=== PATIENT | male | born 1985 | race Caucasian/White ===

== ENCOUNTER 2018-08-17 01:07 | Emergency (ER) | payer OTHER ==
[2018-08-17 01:28] VITALS: PULSE 76; BMI 33.9
[2018-08-17 02:20] VITALS: BP 140/92; TEMP 97.8
[2018-08-17] MEDS ORDERED: ALBUTEROL SO4 2.5/IPRATROPIUM 0.5 INH SOL 3 ML VIAL.NEB. NEB ONE ×2 (02:26→02:31)
--- NOTE | 2018-08-17 02:55 | PDOC ---
History of Present Illness - General Chief Complaint: Shortness of Breath Stated Complaint: DIFFICULTY BREATHING Time Seen by Provider: 08/17/18 02:02 History Source: Patient Exam Limitations: No Limitations - History of Present Illness Initial Comments: 08/17/18 02:47 32-year-old male with history of mild asthma and possible anxiety presents with episode of chest pain and wheezing about 1.5 hours ago while at work. Patient had a stressful shift at work but no exertional stress, while at rest developed chest tightness, reported wheezing, and throat tightness. The episode gradually improved but continues now, presents for evaluation. Denies any history of exertional limitations, climb stairs and walks daily without chest pain or difficulty breathing. Has been treated for mild intermittent asthma in the past with nebulizers only, never admitted or intubated. He does not smoke or drink or do any drugs, including cocaine. Has no notable family history of early heart disease other than his grandfather, denies any recent travel or leg swelling or cramping. Slight anxiety but never had a panic attack, denies any acute psychiatric issues. Past History - Past Medical History Allergies/Adverse Reactions: Allergies Allergy/AdvReac Type Severity Reaction Status Date / Time No Known Allergies Allergy Verified 08/17/18 01:25 Home Medications: Ambulatory Orders NK [No Known Home Medication] 05/25/18 Asthma: Yes COPD: No - Immunization History Immunization Up to Date: Yes - Suicide/Smoking/Psychosocial Hx Smoking Status: No Smoking History: Never smoked Years of Tobacco Use: 0 Have you smoked in the past 12 months: No Number of Cigarettes Smoked Daily: 0 Cigars Per Day: 0 Information on smoking cessation initiated: No Hx Alcohol Use: No Drug/Substance Use Hx: No Substance Use Type: None Review of Systems - Review of Systems Constitutional: No: Chills, Fever, Night Sweats Respiratory: No: Cough, Shortness of Breath, SOB with Exertion Cardiac (ROS): Yes: Chest Pain. No: Edema, Syncope ABD/GI: No: Nausea, Vomiting Neurological: No: Headache Psychiatric: Yes: Anxiety All Other Systems: Reviewed and Negative *Physical Exam - Vital Signs Last Vital Signs Temp Pulse Resp BP Pulse Ox 97.8 F 78 18 140/92 98 08/17/18 01:30 08/17/18 01:30 08/17/18 01:30 08/17/18 01:30 08/17/18 01:30 - Physical Exam Comments: 08/17/18 02:49 Vital signs normal GENERAL: Patient asleep but arousable to verbal, no respiratory distress and speaking full sentences HEAD: Normal with no signs of trauma. EYES: PERRL, EOMI, sclera anicteric, conjunctiva clear with no pallor. ENT: oropharynx clear without exudates. Moist mucous membranes. NECK: Normal range of motion, supple without lymphadenopathy, JVD, or masses. LUNGS: Breath sounds equal, mostly clear with slight end-expiratory wheeze at bases. No crackles. HEART: Regular rate and rhythm, normal S1 and S2 without murmur or rub. ABDOMEN: Soft/nontender/nondistended. BS wnl. No guarding or rebound. No palpable masses. No hepatosplenomegaly. EXTREMITIES: Normal range of motion, no edema. 2+ distal pulses. No cords, erythema, or tenderness. NEUROLOGICAL: Cranial nerves II through XII grossly intact. Normal speech, normal gait. PSYCH: Normal mood, normal affect. SKIN: Warm, Dry, no rashes or lesions noted. Heart Score/ECG Review - History History: Slightly suspicious - Electrocardiogram EKG: Normal - Age Age: </= 45 - Risk Factors Based on the list above the patient has:: No risk factors known #1 ECG reviewed & interpreted by me at: 02:47 General ECG Interpretation: Sinus Rhythm, Normal Rate (81), Normal Intervals ( qtc 422, borderline lvh), No acute ischemic changes ED Treatment Course - RADIOLOGY Radiology Studies Ordered: Category Date Time Status CHEST PA & LAT [RAD] Stat Radiology 08/17/18 02:26 Ordered Medical Decision Making - Medical Decision Making 08/17/18 02:56 Healthy 32-year-old male with episode of atypical chest pain while at work at rest, now resolved. Atypical for ACS, no risk factors for PE, question mild asthma exacerbation versus anxiety. Symptoms resolved, now asleep and well- appearing without red flags on history or physical exam. EKG shows no acute ischemic changes Chest x-ray Trial of nebulizers Reassess and disposition accordingly 08/17/18 04:17 sleeping comfortably, no abnormal respiratory effort. feels better after nebs, sxs resolved. ? mild asthma, ? anxiety. no evidence for ACS, CXR wnl on my prelim review without changes from prior. agrees with d/c plan, pcp f/u, understands return criteria. *DC/Admit/Observation/Transfer Diagnosis at time of Disposition: Atypical chest pain - Discharge Dispostion Disposition: HOME Condition at time of disposition: Improved - Referrals - Patient Instructions Printed Discharge Instructions: DI for Atypical Chest Pain Additional Instructions: Activity as tolerated. Stay hydrated. Tylenol 1000 mg every 8 hours and/or ibuprofen 600 mg every 8 hours as needed for pain. An EKG and a chest xray performed today showed no acute abnormalities. Continue your nebulizer as previously prescribed by your physician. You should follow up with your primary doctor as soon as possible regarding today's emergency department visit. Return to the emergency department for any new or concerning symptoms, particularly persistent or worsening pain, fever or chills, difficulty breathing or shortness of breath, severe cough. - Post Discharge Activity
--- NOTE | 2018-08-17 07:37 | EKG ---
Test Reason : Blood Pressure : / mmHG Vent. Rate : 081 BPM Atrial Rate : 081 BPM P-R Int : 144 ms QRS Dur : 094 ms QT Int : 364 ms P-R-T Axes : 014 -24 -05 degrees QTc Int : 422 ms NORMAL SINUS RHYTHM MODERATE VOLTAGE CRITERIA FOR LVH, MAY BE NORMAL VARIANT ST ELEVATION, CONSIDER EARLY REPOLARIZATION, PERICARDITIS, OR INJURY WHEN COMPARED WITH ECG OF 27-APR-2008 23:25, ST NOW DEPRESSED IN INFERIOR LEADS Confirmed by TIM VALDOVINOS MD ([id number]) on 08/17/2018 7:37:28 AM Referred By: Confirmed By:TIM VALDOVINOS MD
== END 2018-08-17 04:22 | disposition home or self-care (01) ==
LOC: JER 01:07
PROC: 3E0F7GC Introduction of Other Therapeutic Substance into Respiratory Tract, Via Natural or Artificial Opening (ICD-10-PCS; principal; 2018-08-17)
DX: R07.89 Other chest pain (principal)
CPT/HCPCS: 71046-TC-FY; 93005; 93010; 99282-25